=== PATIENT | male | born 1960 | race Caucasian/White ===

== ENCOUNTER 2017-02-14 17:57 | Outpatient (CLI) | payer MEDICARE | END 2017-02-14 17:58 | disposition short-term general hospital (02) | LOC: EMS 17:57 | PROVIDERS: ATTEND Surgery | DX: R07.9 Chest pain, unspecified (principal) | CPT/HCPCS: A0425; A0427 ==

== ENCOUNTER 2021-12-10 13:19 | Outpatient (CLI) | payer MEDICARE, OTHER ==
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
== END 2021-12-10 23:59 | disposition home or self-care (01) ==
LOC: DI.N 13:19
PROVIDERS: ATTEND Physician Assistant Medical
DX: S39.012A Strain of muscle, fascia and tendon of lower back, initial encounter (principal); S63.592A Other specified sprain of left wrist, initial encounter; M47.816 Spondylosis without myelopathy or radiculopathy, lumbar region